=== PATIENT | female | born 1955 | race Caucasian/White ===

== ENCOUNTER 2019-12-02 11:27 | Outpatient (REF) | payer OTHER, SELFPAY ==
[2019-12-02 14:12] LABS: MANUAL DIFF FLAG NO
[2019-12-02 14:26] LABS: Basophils Absolute Auto 0.1 X10*3/uL (0.0-0.2); Basophils Percent Auto 1.1 % (0-2); Eosinophils Absolute Auto 0.2 X10*3/uL (0.0-0.4); Eosinophils Percent Auto 3.4 % (0-4); Hematocrit 45.6 % (37-47); Hemoglobin 14.8 g/dl (12.0-16.0); Imm Gran Abs Auto 0.01 X10*3/uL (0.00-0.03); Imm Gran Pct Auto 0.2 % (0.0-0.4); Lymphocytes Absolute Auto 2.6 X10*3/uL (1.2-4.9); Lymphocytes Percent Auto 47.1 % (20-40); Mean Corpuscular HGB Conc 32.5 g/dl (31.0-35.0); Mean Corpuscular Hemoglobin 31.4 pg (27.0-33.0); Mean Corpuscular Volume 96.6 fL (80-98); Mean Platelet Volume 10.4 fL (9.4-12.3); Monocytes Absolute Auto 0.4 X10*3/uL (0.1-1.2); Monocytes Percent Auto 7.2 % (2-11); Neutrophils Absolute Auto 2.3 X10*3/uL (2.0-8.3); Platelet Count 313 X10*3/uL (160-400); Red Blood Count 4.72 X10*6/uL (4.20-5.50); Red Cell Distribution Width 11.9 % (11.0-16.0); White Blood Count 5.6 X10*3/uL (4.8-10.8)
[2019-12-02 14:45] LABS: Alanine Aminotransferase 21 U/L (0-31); Albumin Level 4.3 g/dL (3.5-5.0); Alkaline Phosphatase 66 U/L (39-117); Anion Gap 12 (12-20); Aspartate Amino Transferase 20 U/L (5-31); Bilirubin Total 0.7 mg/dL (0.0-1.0); Blood Urea Nitrogen 14 mg/dL (9-16); Calcium 9.3 mg/dL (8.4-10.2); Carbon Dioxide 29 mmol/L (22-29); Chloride 103 mmol/L (96-108); Cholesterol 148 mg/dL; Estimated Glomerular Filt Rate > 60; Glucose Fasting 92 mg/dL (60-99); HDL Cholesterol 43 mg/dL; LDL Cholesterol Calculated 91 mg/dl; Potassium 4.5 mmol/l (3.3-5.1); Sodium 139 mmol/L (135-145); Total Protein 7.3 g/dL (6.5-8.0); Triglycerides 72 mg/dL
[2019-12-02 15:06] LABS: Thyroid Stimulating Hormone 0.63 mIU/mL (0.32-4.0)
== END 2019-12-02 11:28 | disposition home or self-care (01) ==
LOC: HO.HMGCLDS 11:27
PROVIDERS: PCP Internal Medicine; Visit Provider Internal Medicine
DX: Z00.00 Encounter for general adult medical examination without abnormal findings (principal); J45.20 Mild intermittent asthma, uncomplicated
CPT/HCPCS: 36415; 80053; 80061; 84443; 85025

== ENCOUNTER 2020-11-16 13:56 | Outpatient (REF) | payer OTHER, SELFPAY ==
--- NOTE | ~2020-11-16 | XR_ITS ---
EXAMINATION: XR CHEST CLINICAL INFORMATION: Mild intermittent asthma COMPARISON: None TECHNIQUE: 2 views of the chest were obtained. FINDINGS: There is region of parenchymal disease seen within the lingula consistent with pneumonia. No pneumothorax or pleural effusion. Heart normal size. No evidence of pulmonary edema. XR/XR chest 2V IMPRESSION: Lingular disease.
== END 2020-11-16 13:57 | disposition home or self-care (01) ==
LOC: HO.HMGCX 13:56
PROVIDERS: PCP Internal Medicine; Visit Provider Internal Medicine
DX: Z13.89 Encounter for screening for other disorder (principal)
CPT/HCPCS: 71046

== ENCOUNTER 2020-12-03 08:21 | Outpatient (REF) | payer OTHER, SELFPAY ==
--- NOTE | ~2020-12-03 | XR_ITS ---
EXAMINATION: XR CHEST CLINICAL INFORMATION: Left lower lobe pneumonia COMPARISON: Previous chest x-ray 11/16/2020 TECHNIQUE: 2 views of the chest were obtained. FINDINGS: The cardiac and mediastinal contours are stable. There is improving left base pneumonia. There are residual increased markings seen at the left lung base in the left lower lobe and lingula. The right lung is clear. There is no pleural effusion or pneumothorax. There are mild degenerative changes of the spine. XR/XR chest 2V IMPRESSION: Improving left base pneumonia.
[2020-12-03 11:52] LABS: MANUAL DIFF FLAG NO
[2020-12-03 12:14] LABS: Basophils Absolute Auto 0.1 X10*3/uL (0.0-0.2); Eosinophils Absolute Auto 0.5 X10*3/uL (0.0-0.4); Hematocrit 44.3 % (37-47); Hemoglobin 14.5 g/dl (12.0-16.0); Imm Gran Abs Auto 0.02 X10*3/uL (0.00-0.03); Imm Gran Pct Auto 0.3 % (0.0-0.4); Lymphocytes Absolute Auto 2.2 X10*3/uL (1.2-4.9); Lymphocytes Percent Auto 35.9 % (20-40); Mean Corpuscular HGB Conc 32.7 g/dl (31.0-35.0); Mean Corpuscular Hemoglobin 31.4 pg (27.0-33.0); Mean Corpuscular Volume 95.9 fL (80-98); Mean Platelet Volume 9.6 fL (9.4-12.3); Monocytes Absolute Auto 0.5 X10*3/uL (0.1-1.2); Monocytes Percent Auto 7.4 % (2-11); Neutrophils Absolute Auto 2.9 X10*3/uL (2.0-8.3); Neutrophils Percent Auto 47.4 % (45-73); Platelet Count 328 X10*3/uL (160-400); Red Blood Count 4.62 X10*6/uL (4.20-5.50); Red Cell Distribution Width 12.5 % (11.0-16.0); White Blood Count 6.1 X10*3/uL (4.8-10.8)
[2020-12-03 12:22] LABS: Alanine Aminotransferase 26 U/L (0-31); Albumin Level 4.1 g/dL (3.5-5.0); Alkaline Phosphatase 69 U/L (39-117); Anion Gap 10 (12-20); Aspartate Amino Transferase 23 U/L (5-31); Bilirubin Total 0.7 mg/dL (0.0-1.0); Blood Urea Nitrogen 13 mg/dL (9-16); C Reactive Protein 0.07 mg/dL (< or = 0.50); Calcium 8.9 mg/dL (8.4-10.2); Carbon Dioxide 25 mmol/L (22-29); Chloride 108 mmol/L (96-108); Estimated Glomerular Filt Rate > 60; Glucose Random 112 mg/dL (60-115); Potassium 4.3 mmol/L (3.3-5.1); Sodium 139 mmol/L (135-145)
== END 2020-12-03 08:22 | disposition home or self-care (01) ==
LOC: HO.HMGCX 08:21
PROVIDERS: PCP Internal Medicine; Visit Provider Internal Medicine
DX: J18.9 Pneumonia, unspecified organism (principal)
CPT/HCPCS: 36415; 71046; 80053; 85025; 86140

== ENCOUNTER 2021-01-26 11:43 | Outpatient (REF) | payer OTHER, SELFPAY ==
--- NOTE | ~2021-01-26 | XR_ITS ---
EXAMINATION: XR CHEST CLINICAL INFORMATION: Lingular infiltrate, follow-up. COMPARISON: Chest radiographs dated 12/03/2020 and 11/16/2020. TECHNIQUE: 2 views of the chest were obtained. FINDINGS: Mild opacification is again seen in the lingula with interval improvement. The lungs are otherwise clear. There are no pleural effusions. The heart and mediastinal structures are unremarkable. XR/XR chest 2V IMPRESSION: Lingular opacity appears decreased from the previous study. This could represent improving infiltrate/atelectasis and/or epicardial fat pad and pleural reflection. Repeat PA and lateral views of the chest could be performed in 3 months to assess for change.
== END 2021-01-26 11:44 | disposition home or self-care (01) ==
LOC: HO.HMGCX 11:43
PROVIDERS: PCP Internal Medicine; Visit Provider Internal Medicine
DX: J18.9 Pneumonia, unspecified organism (principal)
CPT/HCPCS: 71046

== ENCOUNTER → 2021-01-31 09:43 | Outpatient (BNVA) | payer OTHER, SELFPAY | PROVIDERS: PCP Internal Medicine; Visit Provider Internal Medicine | DX: J45.909 Unspecified asthma, uncomplicated (principal); J18.9 Pneumonia, unspecified organism | CPT/HCPCS: 99202 ==

== ENCOUNTER 2021-03-22 14:32 | Outpatient (REF) | payer OTHER, SELFPAY ==
--- NOTE | 2021-03-22 17:37 | PFT_ITS ---
Forced vital capacity 75%, FEV1 71%, FEV1/FVC ratio 72, FEF 25/75, is 52%, and MVV 66%. Post-bronchodilator therapy, there is a significant improvement in FVC, FEV1, and FEF 25/75. Total lung capacity 78% and residual volume 68%, consistent with mild restrictive pulmonary disorder. Diffusion capacity is normal. CONCLUSION: Mild restrictive disorder. Mild obstructive airway disorder with almost complete reversibility after bronchodilator therapy. These findings are suggestive of bronchial asthma. Clinical correlation recommended. MD UNIQUE Jacobs/JEANETTE / [id number]
== END 2021-03-22 14:33 | disposition home or self-care (01) ==
LOC: HO.RESP 14:32
PROVIDERS: PCP Internal Medicine; Visit Provider Internal Medicine
DX: J45.909 Unspecified asthma, uncomplicated (principal); R06.00 Dyspnea, unspecified
CPT/HCPCS: 94060; 94727; 94729

== ENCOUNTER → 2021-03-27 13:01 | Outpatient (BNVA) | payer OTHER, SELFPAY | PROVIDERS: PCP Internal Medicine; Visit Provider Internal Medicine | DX: J45.909 Unspecified asthma, uncomplicated (principal) | CPT/HCPCS: 99212 ==

== ENCOUNTER 2021-05-13 12:19 | Emergency (ER) | payer OTHER, SELFPAY ==
--- NOTE | 2021-05-13 | ECG_ITS ---
Test Reason : chest pain Blood Pressure : / mmHG Vent. Rate : 077 BPM Atrial Rate : 077 BPM P-R Int : 172 ms QRS Dur : 090 ms QT Int : 406 ms P-R-T Axes : 068 043 035 degrees QTc Int : 459 ms Normal sinus rhythm Possible Left atrial enlargement Borderline ECG No previous ECGs available Referred By: Generic ED Physician Electronically Signed By:Padilla Rasmussen
[2021-05-13 14:24] VITALS: BP 174/82; PULSE 80; RESP 18; TEMP 36.6; O2SAT 97; BMI 27.1
[2021-05-13 14:57] LABS: MANUAL DIFF FLAG NO
[2021-05-13 14:59] LABS: Basophils Absolute Auto 0.1 X10*3/uL (0.0-0.2); Basophils Percent Auto 0.6 % (0-2); Eosinophils Absolute Auto 0.1 X10*3/uL (0.0-0.4); Eosinophils Percent Auto 0.7 % (0-4); Hematocrit 45.2 % (37.0-47.0); Imm Gran Abs Auto 0.04 X10*3/uL (0.00-0.03); Imm Gran Pct Auto 0.4 % (0.0-0.4); Lymphocytes Absolute Auto 2.1 X10*3/uL (1.2-4.9); Lymphocytes Percent Auto 22.9 % (20-40); Mean Corpuscular HGB Conc 33.2 g/dl (31.0-35.0); Mean Corpuscular Hemoglobin 31.2 pg (27.0-33.0); Mean Platelet Volume 8.9 fL (9.4-12.3); Monocytes Absolute Auto 0.5 X10*3/uL (0.1-1.2); Monocytes Percent Auto 5.1 % (2-11); Neutrophils Absolute Auto 6.4 x10*3/uL (2.0-8.3); Neutrophils Percent Auto 70.3 % (45-73); Platelet Count 327 X10*3/uL (160-400); Red Blood Count 4.81 X10*6/uL (4.20-5.50); Red Cell Distribution Width 11.9 % (11.0-16.0); White Blood Count 9.1 X10*3/uL (4.8-10.8)
[2021-05-13 15:13] LABS: Anion Gap 14 (12-20); Blood Urea Nitrogen 15 mg/dL (9-16); Calcium 9.6 mg/dL (8.4-10.2); Carbon Dioxide 23 mmol/L (22-29); Chloride 105 mmol/L (96-108); Creatinine Clr Calc Pharmacy 81.2; Estimated Glomerular Filt Rate > 60; Glucose Random 108 mg/dL (60-115); Potassium 4.1 mmol/L (3.3-5.1); Sodium 138 mmol/L (135-145)
== END 2021-05-13 18:57 | disposition left against medical advice (07) ==
PROVIDERS: Emergency Provider Emergency Medicine; PCP Internal Medicine
DX: R00.2 Palpitations (principal); R03.0 Elevated blood-pressure reading, without diagnosis of hypertension
CPT/HCPCS: 36415; 80048; 85025; 93005; 99283

== ENCOUNTER → 2021-06-20 13:55 | Outpatient (BNVA) | payer MEDICARE, OTHER, SELFPAY | PROVIDERS: PCP Internal Medicine; Visit Provider Internal Medicine | DX: J45.991 Cough variant asthma (principal) | CPT/HCPCS: 99212 ==

== ENCOUNTER 2021-12-27 15:38 | Outpatient (REF) | payer MEDICARE, MEDICAID, SELFPAY ==
--- NOTE | ~2021-12-27 | XR_ITS ---
EXAMINATION: XR KNEE, LEFT CLINICAL INFORMATION: Pain COMPARISON: None TECHNIQUE: Four views of the left knee. FINDINGS: Bone alignment is normal. No fracture or dislocation. Arthritis at the medial femoral tibial joint with joint space narrowing and osteophyte formation. Joint spaces are otherwise normal. No joint effusion. 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
== END 2021-12-27 15:39 | disposition home or self-care (01) ==
LOC: HO.HMGCX 15:38
PROVIDERS: PCP Internal Medicine; Visit Provider Internal Medicine
DX: M25.562 Pain in left knee (principal)
CPT/HCPCS: 73564

== ENCOUNTER 2024-05-03 11:28 | Outpatient (AMB) | payer MEDICARE, MEDICAID, SELFPAY ==
--- NOTE | 2024-05-03 11:41 | A.OFFPC_ITS ---
Vital Signs 05/03/24 11:42 Height 5 ft 6 in Weight 177 lb BMI 28.6 BP 160/88 H Respiration 16 Pulse 66 Pulse Source Pulse Oximeter Temp 97.7 F Pulse Oximetry (%) 96 Oxygen Delivery Method Room Air Intake Visit Reasons: blocked ears [employer] Required: No Accompanied by: Self / Same As Patient Allergies codeine Allergy (Severe, Verified 05/03/24 13:15) chest pain Penicillins Allergy (Severe, Verified 05/03/24 13:15) hives Medication List - Last Reconciled 05/03/24 by Funmilayo Eagle PA-C albuterol sulfate 90 mcg/actuation 1 inh inhalation QID PRN fluticasone propionate 220 mcg/actuation 2 puffs PO BID levalbuterol tartrate 45 mcg/actuation 2 puffs inhalation Q4-6H PRN 30 days loratadine-pseudoephedrine 5-120 mg ER (Claritin-D 12 Hour) 1 tab PO Q12H losartan 50 mg PO BID propranolol 10 mg PO BID PRN valacyclovir (Valtrex) 1,000 mg PO TID 14 days Tobacco use date assessed: 05/03/24 Fall risk assessment: No Falls in past year Last assessed Fall Risk: 05/03/24 Dental Screening Dental Screen Date: 05/03/24 Did you have a dental visit in the last 12 months?: Yes Did you have a dental problem in the last 6 months where you did not have access to dental care?: No PFSH Medical History (Updated 05/03/24 @ 13:35 by Funmilayo Eagle PA-C) Overweight with body mass index (BMI) of 28 to 28.9 in adult Breast cancer screening Encounter for colorectal cancer screening using Cologuard test (~08/05/22) Varicella zoster Headache, migraine Other disturbances of skin sensation Hypertension Otalgia, bilateral Asthma Pneumonia Asthmatic bronchitis Surgical History (Updated 05/03/24 @ 13:27 by Funmilayo Eagle PA-C) History of dilatation and curettage History of cholecystectomy Family History Father Heart disease Mother Bladder cancer Social History Housing: House Alcohol intake: never Patient Tobacco Use Status: Former Tobacco user service: No Current occupational status: employed Cognitive needs: No Hearing needs: No Vision needs: Yes Questionnaire PHQ-9 Over the last 2 weeks, how often have you been bothered by any of the following problems? 1. Little interest or pleasure in doing things: not at all 2. Feeling down, depressed, or hopeless: not at all 3. Trouble falling or staying asleep, or sleeping too much: not at all 4. Feeling tired or having little energy: not at all 5. Poor appetite or overeating: not at all 6. Feeling bad about yourself - or that you are a failure or have let yourself or your family down: not at all 7. Trouble concentrating on things, such as reading the newspaper or watching television: not at all 8. Moving or speaking so slowly that other people could have noticed. Or the opposite - being so fidgety or restless that you have been moving around a lot more than usual: not at all 9. Thoughts that you would be better off or of hurting yourself in some way: not at all Total score: 0 Depression Screening Interpretation: Negative Depression Screening Done: Yes 80127 - PHQ-9 Billing: Yes Source: Developed by Drs. Santo Woods, Neha Prasad, Contreras Vail and colleagues, with an educational marco a from [employer]. Thrive Questionnaire Date Thrive assessed: 05/03/24 I am a: Patient What is your living situation today?: I have a steady place to live Within the past 12 months, did the food you bought not last and you didn't have the money to get more?: Never true Within the past 12 months, did you worry whether your food would run out before you got money to buy more?: Never true Do you have trouble paying for medicines?: No Do you have trouble getting transportation to medical appointments?: No Do you have trouble paying your heating and electricity bill?: No Do you have trouble taking care of your child, family member or friend?: No Do you have trouble with day-to-day activities such as bathing, preparing meals, shopping, managing finances, etc.?: No Are you currently unemployed and looking for a job?: No Are you interested in more education?: No THRIVE Score: 0 AUDIT C Alcohol Use Questionnaire (AUDIT-C) 1. How often do you have a drink containing alcohol?: Never 3. How often do you have six or more drinks on one occasion?: Never Total Score: 0 Score Reviewed/Action Taken: No CHOCO-7 AMB Questionnaire CHOCO-7 Date CHOCO - 7 assessed: 05/03/24 Feeling nervous, anxious, or on edge: 0 = Not at all Not being able to stop or control worryin = Not at all Worrying too much about different things: 0 = Not at all Trouble relaxin = Not at all Being so restless that it is hard to sit still: 0 = Not at all Becoming easily annoyed or irritable: 0 = Not at all Feeling afraid as if something awful might happen: 0 = Not at all Total CHOCO-7 score (0-4 normal; 5-9 mild; 10-14 moderate; 15-21 severe): 0 Source: Developed by Drs. Santo Woods, Neha Prasad, Contreras Vail and colleagues, with an educational marco a from [employer]. CHOCO-7 Assessment Billing CHOCO-7 Assessment Tool: CHOCO-7 Assessment 40613 Physical exam (Primary Care) Vital Signs: Last Vital Signs Temp 97.7 F 05/03/24 11:42 Pulse 66 05/03/24 11:42 Resp 16 05/03/24 11:42 BP 160/88 H 05/03/24 11:42 Pulse Ox 96 05/03/24 11:42 Oxygen Delivery Method Room Air 05/03/24 11:42 Care Plan Goal for BP management: <130/80 will increase losartan to 50 mg b.i.d.. BMI result Body Mass Index 28.6 BMI Assessment/Plan discussion: High BMI High, discussed plan: lifestyle, weight reduction, dietary, physical activity and alcohol moderation Tobacco/Smoking Status: Tobacco use Status Tobacco use date assessed 05/03/24 05/03/24 11:51 Patient Tobacco Use Status Former Tobacco user 05/03/24 11:51 PHQ-9: PHQ-9 Score PHQ-9: Total score 0 05/03/24 11:51 Depression Screening Interpretation: Negative Thrive Assessment: Date of Thrive Assessment Date Thrive assessed 05/03/24 05/03/24 11:51 Coding Level of Care Code New Pt Level 4 (29293) Complex EM visit Add On G2211 Diagnoses Otalgia, bilateral H92.03 Hypertension I10 Other disturbances of skin sensation R20.8 Breast cancer screening Z12.39 Asthma J45.909 Headache, migraine G43.909 Overweight with body mass index (BMI) of 28 to 28.9 in adult E66.3; Z68.28 Additional Codes PHQ-9 - 84519 - PHQ-9 Billing: Yes ([id number]) CHOCO-7 Assessment Billing - CHOCO-7 Assessment Tool: CHOCO-7 Assessment 66260 ([id number]) Assessment & Plan Assessment & Plan (1) Otalgia, bilateral: Code(s): H92.03 - Otalgia, bilateral Category: Medical Plan: Bilateral ear pain no evidence of otitis media, otitis externa, cerumen impaction, mastoiditis or any foreign bodies or abnormalities. Patient with some fluid behind the tympanic membrane. Will prescribe Claritin D. Condition is stable will continue to monitor. (2) Hypertension: Code(s): I10 - Essential (primary) hypertension Category: Medical Plan: BP goal <130/80. BP at 160/88 will increase losartan 50 mg B.I.D.. Patient to monitor her blood pressure and return in 1 month for blood pressure check. Condition is chronic and stable continue to monitor. (3) Other disturbances of skin sensation: Code(s): R20.8 - Other disturbances of skin sensation Category: Medical Plan: Patient with burning sensation to bilateral breasts. She has a few red spots to the right breast there are no lumps or lesions or signs of infection. She has a history of shingles to her back. This could be a possible starting of a shingles therefore will send Valtrex. Condition is stable continue to monitor. (4) Breast cancer screening: Code(s): Z12.39 - Encounter for other screening for malignant neoplasm of breast Category: Medical Plan: Will refer patient for mammogram for breast cancer screening. (5) Asthma: Comment: Patient has long-standing history of low-grade hypersensitivity disorder of the airways. Now as per pulmonary function test, there is evidence of bronchial asthma, which may be mild to moderate, and intermittent. In her case asthma presents mostly in the form of cough variant. [place] : At this time, because she is asymptomatic and lungs are clear, she can wean her off Flovent . No need to use any oral steroids. For rescue inhaler, I will order levalbuterol, which should not cause any tachycardia. Revisit Q 6 months and as needed Code(s): J45.909 - Unspecified asthma, uncomplicated Category: Medical Plan: Condition is chronic and stable continue to monitor. (6) Headache, migraine: Code(s): G43.909 - Migraine, unspecified, not intractable, without status migrainosus Category: Medical Plan: Condition is chronic and stable continue to monitor. (7) Overweight with body mass index (BMI) of 28 to 28.9 in adult: Code(s): E66.3 - Overweight; Z68.28 - Body mass index [BMI] 28.0-28.9, adult Category: Medical Plan: PATIENT TO IMPROVE HER DIET AND EXERCISE REGIMEN. CONDITION IS CHRONIC AND STABLE CONTINUE TO MONITOR. Plan Plan Patient was informed and verbally consented to the use of an ambient scribe for clinic note documentation during this visit. 1. Hypertension Adjust Losartan to 50 mg bid, with BP re-evaluation plan. 2. Suspected Shingles Prescribe Valtrex; detailed instructions on symptom monitoring. 3. Breast Pain Mammogram referral to investigate; consider differentials including blocked duct or shingles if symptoms evolve. 4. Tinnitus Await ENT feedback; self-monitor for changes. 5. Ear Congestion Prescribe Claritin D; refer to ENT for further assessment. Discussion Notes I discussed the patient's symptoms and potential causes, focusing on possibilities such as blocked ducts, shingles, or pressure from hypertension. We agreed on mammography for pain evaluation and initiated an ENT referral due to persistent ear issues alongside a trial of Claritin D. Furthermore, I advised adjusting her hypertension regime by increasing Losartan and provided instructions regarding her blood pressure monitoring. We discussed shingles risk, prescribing Valtrex preemptively, emphasizing early antiviral intervention at symptom onset. The patient expressed understanding and agreed with the propo sed next steps. Orders: Orders C Reactive Protein Today Z00.00 - Encounter for general adult medical examination without abnormal findings Complete Blood Count Auto Diff Today Z00.00 - Encounter for general adult medical examination without abnormal findings Hemoglobin A1c Today Z00.00 - Encounter for general adult medical examination without abnormal findings Vitamin B1 Today Z00.00 - Encounter for general adult medical examination without abnormal findings TSH reflex Free T4 Today Z00.00 - Encounter for general adult medical examination without abnormal findings MM screening mammo BI Today Z12.31 - Encounter for screening mammogram for malignant neoplasm of breast Comprehensive Soper. Panel Fast Today Z00.00 - Encounter for general adult medical examination without abnormal findings Lipid Panel Today Z00.00 - Encounter for general adult medical examination without abnormal findings Liver Panel Today Z00.00 - Encounter for general adult medical examination without abnormal findings Magnesium Today Z00.00 - Encounter for general adult medical examination without abnormal findings Vitamin B12 and Folate Today Z00.00 - Encounter for general adult medical examination without abnormal findings Vitamin D 25-OH Total Today Z00.00 - Encounter for general adult medical examination without abnormal findings LDL Cholesterol Direct Today Z00.00 - Encounter for general adult medical examination without abnormal findings Medications: New losartan 50 mg PO BID 180 tabs 1RF loratadine-pseudoephedrine 5-120 mg ER (Claritin-D 12 Hour) 1 tab PO Q12H 30 tabs 0RF valacyclovir (Valtrex) 1,000 mg PO TID 42 tabs 0RF herpes zoster 14 days Patient Instructions: Patient Instructions - Use Claritin D as prescribed for ear symptoms. - Monitor and record blood pressure readings daily. - Take Losartan 50 mg twice daily. - Watch breasts for any new rashes and notify immediately upon noticing any shingles-related symptoms. - Fill and keep Valtrex on hand for emergency use against shingles. - Schedule mammogram appointment promptly. - Follow up as recommended for both blood pressure management and review of mammography results. - Continue weight management routine and bone broth fasting. Scribe Plan - Not visible on output: History of Present Illness The patient is a 68-year-old female presenting with ear congestion and burning breast pain. The ear symptoms mimic pressure changes, potentially tied to her blood pressure, though allergies were considered. The breast issue began acutely, raising the specter of a past blocked duct. The possibility of shingles is under consideration, given her history. She has deferred mammograms against medical advice, complicating a thorough breast assessment. Blood pressure concerns persist, with marginal relief from medication adjustments. Social History - , resides at home. - Reports managing hypertension. 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 - Observes dietary changes: off sugar since February, incorporating bone broth, fasting twice weekly for weight loss. - Practices home-based exercise through activity modifications. - Son is a chiropractor, patient receiving chiropractic adjustments. - Avoids underwire bras due to personal belief related to breast health. Review of Systems - Ears: Reports slight ringing. - Cardiovascular: Denies chest pain. - Respiratory: Denies coughing. - Gastrointestinal: Denies unusual bowel habits. - Genitourinary: Denies abnormalities. - Musculoskeletal: Denies any other joint pain. - Neurological: Reports chronic tinnitus. - Immunologic: History of recurrent shingles episodes. Physical Exam Appearance: Alert. Oriented X3. No acute distress. Head: Normal external exam. Normocephalic. Atraumatic. Eyes: Pupils are equal, round, and reactive to light. Extraocular movements intact. Conjunctiva and sclera normal. Eyelids normal. Ears: External auditory canal shows a little bit of fluid, but no infection. Throat: Pharynx normal. Uvula midline. Moist mucous membranes. Neck: Normal inspection. Neck supple. Full range of motion. No adenopathy. Thyroid Normal. No meningeal signs. No neck mass noted. Cardiovascular: Normal heart rate and rhythm. Heart sound normal. No murmurs noted. Pulses normal throughout. Respiratory: No respiratory distress. Painless inspiration. Breath sounds no rmal. No wheezes/rales/rhonchi noted. Chest nontender. No accessory muscle usage noted or decreased air movement noted. Abdomen: Soft and nontender. Bowel sounds normal in all 4 quadrants. No distenti on noted. No organomegaly noted. No visible injury noted. Back: No costovertebral angle tenderness. Full range of motion noted. Skin: Skin warm and dry. Normal skin color. Normal skin turgor. Little red spots noted, possibly indicative of shingles. Extremities: No lower extremity edema. Extremities exhibit normal range of motion. Extremities nontender. Neuro: Oriented X 3. No motor deficit. No sensory deficit. Reflexes normal. Results - Tests and Diagnostics: Mammogram referral pending.
[2024-05-03 11:42] VITALS: BP 160/88; PULSE 66; RESP 16; TEMP 36.5; O2SAT 96; BMI 28.6
--- OUTSIDE RECORDS SUMMARY | 2024-05-03 14:13 | XMS_ITS | Patient Health Record ---
Author Organization Daniel Kerr MD Address [address] [place], [place] [id number] Care Team Providers Care Supervisor [employer] Name Role Phone Santo Arthur DO Primary Care Provider Unavail able Allergies Allergen (clinical drug ingredient) Drug/Non Drug Allergy documented on EMR Reaction Allergy Type Onset Date Status Penicillin hives Drug Allergy Active valacyclovir Valacyclovir dizziness Drug Allergy A ctive codeine Codeine chest pain Drug Allergy Active 12 Hour Nasal [place] Unknown Drug Allergy Active Reason For Referral No Information Medications Medication SIG (Take, Route, Frequency, Duration) Notes Start Date End Date Status Propranolol HCl 10 MG 1 tablet Orally On ce a day for 30 day(s) Active valACYclovir HCl 1 GM 1 tablet Orally 3 times a day for 7 days 01/23/2023 Active Losartan Potassium 50 MG 1 tablet Orally Once a day for 30 day(s) Active Ocuflox 0.3 % as directed Ophthalm ic 2 drops 4 times a day for 7 days 03/16/2023 Active Plan Of Treatment No Information Insurance Providers Payer Name Payer Address Payer Phone Subscriber Number Group Number Insured Name Patient Relationship to Insured Coverage Start Date Coverage End Date [employer] [address] [place] [address] [id number] Dahiana Albarado Self - patient is the insured [facility] [address] [place] [address] [id number] Dahiana Albarado Self - patient is the insured
--- OUTSIDE RECORDS SUMMARY | 2024-05-03 14:13 | XMS_ITS ---
Author Organization Daniel Kerr MD Address [address] [place] [id number] Care Team Providers Care Technical Marketing Engineer Name Role Phone Jerson Santo Primary Care Provider Unavail Daniel Bird Unavailable [phone] REASON FOR VISIT stye right eye, ? pink eye Medications Medication SIG (Take, Route, Frequency, Duration) Notes Start Date End Date Status Ocuflox 0.3 % as directed Ophthalm ic 2 drops 4 times a day for 7 days 03/16/2023 Active Encounters Encounter Location Date Provider Diagnosis Daniel Kerr MD [address] [place] [phone] 03/16/2023 Daniel Kerr Plan Of Treatment Medication Medication Name Sig Start Date Stop Date Notes Ocuflox 0.3 % as directed Ophthalm ic 2 drops 4 times a day for 7 days 03/16/2023 Progress Notes * Dahiana ALBARADODOB: [birth year] (67 yo F)Acc No.[id number]:03/16/2023 Patient:?Dahiana Albarado :1955???Age:67 Y???Sex:Female [address] , [place], [address] * Refills? Start Ocuflox Solution, 0.3 %, Ophthalmic, 1, as directed, 2 drops 4 times a day, 7 days * true * Date:? Generated for Lakhwinder camilo/Javon/eTransmitting on:?05/03/2024 02:13 PM EDT
--- OUTSIDE RECORDS SUMMARY | 2024-05-03 14:13 | XMS_ITS | Clinical Summary ---
Author Organization [facility] Address [address] [place] [address] Care Team Providers Care Regional Account Executive Name Role Phone Unavailable Primary Care Provider Unavailabl e Social History Tobacco Use Types Packs/Day Years Used Date Smoking Tobacco: Never Assessed Comments Unknown Sex and Gender Information Value Date Recorded Sex Assigned at Not on file Legal Sex Female 8:27 AM PST Gender Identity Not on file Sexual Orientation Not on file Plan of Treatment Not on file
--- OUTSIDE RECORDS SUMMARY | 2024-05-03 14:13 | XMS_ITS | Encounter Summary ---
Author Organization [facility] [place] Address [address] [place] [address] Care Team Providers Care Time Clock Mechanic Name Role Phone Unavailable Primary Care Provider Unavailabl e Prior Encounters Date Type Department Care Team Description 03/14/2019 Converted CPS Chart Documents [facility] [address] [place] [phone] <No scans attached> 03/14/2019 Converted CPS Chart Documents [facility] [address], [facility] [address] [place] [phone] <No scans attached> 03/14/2019 Converted 13x Documents [facility] [address] [place] [phone] <No scans attached> 03/14/2019 Converted 13x Documents [facility] [address], [facility] [address] [place] [phone] <No scans attached> Plan of Treatment Not on file Procedures Procedure Name Priority Date/Time Associated Diagnosis Comments ADJUST PARTIAL DENTURE - MAXILLARY Routine 05/27/2016 1:00 AM MDT CANCELLED APPOINTMENT Routine 04/28/2016 1:00 AM MST 20 CERECFIRED CROWNPOST Routine 03/14/19 17 1:00 AM MST COMPREHENSIVE PERIODONTAL EVALUATION - NEW OR ESTABLISHED PATIENT Routine 02/06/2016 1:00 AM MST LR PERIODONTAL SCALING AND ROOT PLANING - FOUR OR MORE TEETH PER QUADRANT Routine 01/30/2016 1:00 AM MST LL PERIODONTAL SCALING AND ROOT PLANING - FOUR OR MORE TEETH PER QUADRANT Routine 01/30/2016 1:00 AM MST ORAL HYGIENE INSTRUCTIONS Routine 2015 1:00 AM MST LR JIMENA DECON/QD Routine 01/30/2016 1:00 AM MST LL JIMENA DECON/QD Routine 01/30/2016 1:00 AM MST UL JIMENA DECON/QD Routine 01/30/2016 1:00 AM MST UR JIMENA DECON/QD Routine 01/30/2016 1:00 AM MST UR PERIODONTAL SCALING AND ROOT PLANING - ONE TO THREE TEETH PER QUADRANT Routine 01/30/2016 1:00 AM MST UL PERIODONTAL SCALING AND ROOT PLANING - ONE TO THREE TEETH PER QUADRANT Routine 01/30/2016 1:00 AM MST UR ANTIBACT IRR/QUAD Routine 01/30/2016 1:00 AM MST UL ANTIBACT IRR/QUAD Routine 01/30/2016 1:00 AM MST LR ANTIBACT IRR/QUAD Routine 01/30/2016 1:00 AM MST LL ANTIBACT IRR/QUAD Routine 01/30/2016 1:00 AM MST DENTAL PLAN ENROLL 2 Routine 01/30/2016 1:00 AM MST 19 CROWN - FULL CAST HIGH MARIE METAL Routine 01/22/2016 1:00 AM MST 20 AMALGAM 3 SURFACE Routine 016 1:00 AM MST 31 RETAINER CROWN - ZIRCONIA IN OFFICE - POST Routine 01/22/2016 1:00 AM MST 29 RETAINER CROWN - ZIRCONIA IN OFFICE - POST Routine 01/22/2016 1:00 AM MST 30 PONTIC - ZIRCONIA IN OFFICE - POST Routine 01/22/2016 1:00 AM MST 19 ENDODONTIC THERAPY, MOLAR TOOTH (EXCLUDING FINAL GNOSTICIST) Routine 01/22/2016 1:00 AM MST 29 ENDODONTIC THERAPY, PREMOLAR TOOTH (EXCLUDING FINAL GNOSTICIST) Routine 01/22/2016 1:00 AM MST 10 ENDODONTIC THERAPY, ANTERIOR TOOTH (EXCLUDING FINAL GNOSTICIST) Routine 01/22/2016 1:00 AM MST 6 ENDODONTIC THERAPY, ANTERIOR TOOTH (EXCLUDING FINAL GNOSTICIST) Routine 01/22/2016 1:00 AM MST 11 CROWN PFM ANT Routine 01/22/2016 1:00 AM MST 10 CROWN PFM ANT Routine 01/22/2016 1:00 AM MST 9 CROWN PFM ANT Routine 01/22/2016 1:00 AM MST 8 CROWN PFM ANT Routine 01/22/2016 1:00 AM [facility] ADJUNCTIVE PRE-DIAGNOSTIC TEST THAT AIDS IN DETECTION OF MUCOSAL ABNORMALITIES Routine 01/22/2016 1:00 AM MST COMPREHENSIVE ORAL EVALUATION - NEW OR ESTABLISHED PATIENT Routine 01/22/2016 1:00 AM [facility] PANORAMIC RADIOGRAPHIC IMAGE Routine 01/22/2016 1:00 AM [facility] INTRAORAL - COMPREHENSIVE SERIES OF RADIOGRAPHIC IMAGES Routine 01/22/2016 1:00 AM MST INTRAORAL PHOTO Routine 01/22/2016 1:00 AM MST INTRAORAL PHOTO Routine 01/22/2016 1:00 AM MST INTRAORAL PHOTO Routine 01/22/2016 1:00 AM MST INTRAORAL PHOTO Routine 01/22/2016 1:00 AM MST INTRAORAL PHOTO Routine 01/22/2016 1:00 AM MST INTRAORAL PHOTO Routine 01/22/2016 1:00 AM MST INTRAORAL PHOTO Routine 01/22/2016 1:00 AM MST INTRAORAL PHOTO Routine 01/22/2016 1:00 AM MST 6 UNSPECIFIED FIXED PROSTHODONTIC PROCEDURE, BY REPORT Routine 01/17/2014 1:00 AM MST 6 LIMITED ORAL EVALUATION - PROBLEM FOCUSED Routine 01/17/2014 1:00 AM MST 6 ENDODONTIC THERAPY, ANTERIOR TOOTH (EXCLUDING FINAL GNOSTICIST) Routine 01/13/2014 1:00 AM MST CHLORHEXIDINE Routine 01/13/2014 1:00 AM MST 6 LIMITED ORAL EVALUATION - PROBLEM FOCUSED Routine 01/13/2014 1:00 AM MST SINGLE X-RAY Routine 01/13/2014 1:00 AM MST INTRAORAL PHOTO Routine 01/13/2014 1:00 AM MST 6 CORE BUILDUP, INCLUDING ANY PINS WHEN REQUIRED Routine 03/21/2013 1:00 AM MST 30 PONTIC - PFG - POST Routine 3 1:00 AM MDT 31 RETAINER CROWN - PFG - POST Routine 09/22/2012 1:00 AM MDT 29 RETAINER CROWN - PFG - POST Routine 09/22/2012 1:00 AM MDT 7 RETAINER CROWN - PFG - POST Routine 09/22/2012 1:00 AM MDT 6 RETAINER CROWN - PFG - POST Routine 09/22/2012 1:00 AM MDT 29 ENDODONTIC THERAPY, PREMOLAR TOOTH (EXCLUDING FINAL GNOSTICIST) Routine 09/22/2012 1:00 AM MDT ADDITIONAL X-RAY Routine 09/22/2012 1:00 AM MDT 6 LIMITED ORAL EVALUATION - PROBLEM FOCUSED Routine 09/22/2012 1:00 AM MDT SINGLE X-RAY Routine 09/22/2012 1:00 AM MDT Visit Diagnoses Not on file
--- OUTSIDE RECORDS SUMMARY | 2024-05-03 14:14 | XMS_ITS | Patient Health Record ---
Author Organization [facility] Address [address] [place] [address] Care Team Providers Care Research Manager Name Role Phone Santo Arthur MD Primary Care Provider Unavail able Micheal Becerril Unavailable [phone] Allergies Allergen (clinical drug ingredient) Drug/Non Drug Allergy documented on EMR Reaction Allergy Type Onset Date Status Aleve ill feeling Drug Allergy Activ e Biaxin hives Drug Allergy Active azithromycin Azithromycin hives Drug Allergy A ctive diclofenac Diclofenac diarrhea,upset stomach Drug Allergy Active erythromycin Erythromycin hives Drug Allergy A ctive Non-steroidal anti-inflammatory agent (FN) NSAIDs Unknown Drug Allergy Active Penicillin hives Drug Allergy Active Reason For Referral No Information Medications Medication SIG (Take, Route, Frequency, Duration) Notes Start Date End Date Status Losartan Potassium 50 MG Oral for 90 Active Propranolol HCl 10 MG TAKE 1 TABLET BY M OUTH TWICE A DAY FOR 90 DAYS Oral for 90 Active Immunizations Vaccine Route Administration Date Status Comme nts COVID-19 Pfizer BioNTech Vaccine Unknown 12/28/2020 Administered 03/16/20,04/06/20 Social History Tobacco Use: Social History Observation Description Date Details (start date - stop date) Former Smoker NA - NA Tobacco Use/Smoking Question Answer Notes Are you a: former smoker Additional Findings: Tobacco Non-User Current no n-smoker Alcohol Screen Question Answer Notes Did you have a drink containing alcohol in the p ast year? No Points 0 Interpretation Negative Tobacco use other than smoking: Question Answer Notes Are you an other tobacco user? 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 Plan Of Treatment Pending Test Test Name Order Date X ray : Foot, right 3V 05/06/2022 Insurance Providers Payer Name Payer Address Payer Phone Subscriber Number Group Number Insured Name Patient Relationship to Insured Coverage Start Date Coverage End Date Medicare National Govt Sv[employer] [address] [place] [address] [id number] Dahiana Albarado Self - patient is the insured Medical (General) History Medical History History ICD Code covid-19 Arthritis asthma Gall bladder problems High blood pressure Bone implants/screws eyes several retinal tears Surgical History Surgery Date(Month/Year) gall bladder removal 07/1982
--- OUTSIDE RECORDS SUMMARY | 2024-05-03 14:14 | XMS_ITS ---
Author Organization Daniel Kerr MD Address [address] [place] [phone] Care Team Providers Care Contract Mail Carrier Name Role Phone Jerson Santo SKELTON Primary Care Provider Unavail able Daniel Kerr Unavailable [phone] Allergies Allergen (clinical drug ingredient) Drug/Non Drug Allergy documented on EMR Reaction Allergy Type Onset Date Status Penicillin hives Drug Allergy Active valacyclovir Valacyclovir dizziness Drug Allergy A ctive codeine Codeine chest pain Drug Allergy Active 12 Hour Nasal [place] Unknown Drug Allergy Active REASON FOR VISIT ? shingles T7 T8 pain no rash x 3 days, No Covid symptoms, Video Medications Medication SIG (Take, Route, Frequency, Duration) Notes Start Date End Date Status Propranolol HCl 10 MG 1 tablet Orally On ce a day for 30 day(s) Active valACYclovir HCl 1 GM 1 tablet Orally 3 times a day for 7 days 01/23/2023 Active Losartan Potassium 50 MG 1 tablet Orally Once a day for 30 day(s) Active Encounters Encounter Location Date Provider Diagnosis Daniel Kerr MD [address] [place] [phone] 01/23/2023 Daniel Kerr Herpes zoster withou t complication B02.9 Assessments Encounter Date Diagnosis (ICD Code) Assessment Notes Treatment Notes Treatment Clinical Notes Section Notes 01/23/2023 Herpes zoster without complication (ICD-10 - B02.9) did not have an acual allergic reaction. just groggy head Patient/Caregiver verbalizes understanding of medications side effects, interactions and warnings. Plan Of Treatment Medication Medication Name Sig Start Date Stop Date Notes valACYclovir HCl 1 GM 1 tablet Orally 3 times a day for 7 days 01/23/2023 Treatment Notes Assessment Notes Herpes zoster without complication did n ot have an acual allergic reaction. just groggy head Patient/Caregiver verbalizes understanding of medications side effects, interactions and warnings. Progress Notes * Dahiana ALBARADODOB: [birth year] (67 yo F)Acc No.[id number]:01/23/2023 Patient:?Dahiana Albarado Provider:?Daniel Kerr MD :[id number]???Age:67 Y???Sex:Female D ate:01/23/2023 Address:[address] [place], [place] [phone] Pcp:Santo Arthur, DO Subjective: * Chief Complaints: * ? shingles T7 T8 pain no rash x 3 daysNo Covid symptomsVideo * HPI: ???Symptom(s):?Telehealth?Location of provider rendering services:?[address], [address],?Location of patient:?at address listed in demographics for today's visit,?Patient identification confirmed using:?Name, , SSN, Insurance information,?Telehealth method:?Video conference where patient is visible to the provider of care,?Consent:?Patient verbally consented to treatment, Patient verbally consented to billing insurance company, Patient informed of any privacy concerns related to method of visit.? patientis a 67 yo female video telehealth visit, patient of Dr Arthur, had shingles in past. had 10 years ago. this time has a lot of pain in ribs. started about 4 days ago. skin in the area is very sensitive to touch. below breast had tingling and is sensitive. * ROS:?General/Constitutional:?Denies?Chills.?Denies?Fatigue.?Denies?Fever.?Denies?Headache.?ENT:?Patient denies?decreased sense of smell , any loss of taste , sore throat.?Denies?Sore throat.?Respiratory:?Denies?Cough.?Denies?Shortness of breath at rest.?Denies?Shortness of breath with exertion.?Gastrointestinal:?Denies?Diarrhea.?Denies?Nausea.?Musculoskeletal:?Patient denies?muscle aches.?Peripheral Vascular:?Patient denies?red and blue toes.? * Medical History:? * Surgical History:? * Hospitalization/Major Diagno stic Procedure:? * Medications:?TakingLosartan Potassium 50 MG Tablet 1 tablet Orally Once a dayPropranolol HCl 10 MG Tablet 1 tablet Orally Once a dayMedication List reviewed and reconciled with the patientTaking Losartan Potassium 50 MG Tablet 1 tablet Orally Once a dayTaking Propranolol HCl 10 MG Tablet 1 tablet Orally Once a dayMedication List reviewed and reconciled with the patient * Allergies:?Penicillin: hives Codeine: chest pain12 Hour Nasal SprayValacyclovir: dizzinessyes[Allergies Verified] Objective: * Vitals:?weight at home 175 B P 120/80. * Examination: ???General Examination: ?GENERAL APPEARANCE:? alert, well hydrated, in no distress .? Assessment: * Assessment: 1.?Herpes zoster without com plication - B02.9 (Primary)? Plan: * Treatment: * Procedure Codes:? * * Sign off status: Completed true * Provider:?Daniel Kerr MD Date:?1 03/26/2022 Generated for Lakhwinder camilo/Javon/Luiitting on:?05/03/2024 02:14 PM EDT History and Physical Notes * HPI (History of Present Illness) Category Sub-Category Detail Notes Category Not es Symptom(s) Telehealth Location of prov ider rendering services:: [address], [address] patientis a 67 yo female video telehealth visit, patient of Dr Arthur, had shingles in past. had 10 years ago. this time has a lot of pain in ribs. started about 4 days ago. skin in the area is very sensitive to touch. below breast had tingling and is sensitive Location of patient:: at address listed in demographics for today's visit Patient identification confirmed using:: Name, , SSN, Insurance information Telehealth method:: Video co nference where patient is visible to the provider of care Consent:: Patient verbally c onsented to treatment, Patient verbally consented to billing insurance company, Patient informed of any privacy concerns related to method of visit Examination Category Sub-Category Detail Notes Category Not es General Examination GENERAL APPEARANCE: alert, w ell hydrated, in no distress
== END 2024-05-03 12:08 | disposition home or self-care (01) ==
LOC: HO.HMCSH 11:28
PROVIDERS: PCP Internal Medicine; Visit Provider Physician Assistant Medical
DX: H92.03 Otalgia, bilateral (principal); I10 Essential (primary) hypertension; R20.8 Other disturbances of skin sensation; Z12.39 Encounter for other screening for malignant neoplasm of breast; J45.909 Unspecified asthma, uncomplicated; G43.909 Migraine, unspecified, not intractable, without status migrainosus; E66.3 Overweight; Z68.28 Body mass index [BMI] 28.0-28.9, adult

== ENCOUNTER → 2024-05-03 11:28 | Outpatient (BNVA) | payer MEDICARE, MEDICAID, SELFPAY | PROVIDERS: PCP Internal Medicine; Visit Provider Physician Assistant Medical | DX: H92.03 Otalgia, bilateral (principal); I10 Essential (primary) hypertension; R20.8 Other disturbances of skin sensation; J45.909 Unspecified asthma, uncomplicated; G43.909 Migraine, unspecified, not intractable, without status migrainosus; E66.3 Overweight; Z68.28 Body mass index [BMI] 28.0-28.9, adult; Z71.3 Dietary counseling and surveillance | CPT/HCPCS: 96127; 99202 ==

== ENCOUNTER 2024-05-10 07:37 | Outpatient (REF) | payer MEDICARE, MEDICAID, SELFPAY ==
[2024-05-10 10:15] LABS: MANUAL DIFF FLAG NO
[2024-05-10 10:29] LABS: Basophils Absolute Auto 0.1 X10*3/uL (0.0-0.2); Basophils Percent Auto 1.1 % (0-2); Eosinophils Absolute Auto 0.1 X10*3/uL (0.0-0.4); Eosinophils Percent Auto 1.3 % (0-4); Hematocrit 45.3 % (37.0-47.0); Hemoglobin 14.6 g/dl (12.0-16.0); Imm Gran Abs Auto 0.03 X10*3/uL (0.00-0.03); Imm Gran Pct Auto 0.3 % (0.0-0.4); Lymphocytes Absolute Auto 4.5 X10*3/uL (1.2-4.9); Lymphocytes Percent Auto 52.2 % (20-40); Mean Corpuscular HGB Conc 32.2 g/dl (31.0-35.0); Mean Corpuscular Hemoglobin 30.8 pg (27.0-33.0); Mean Corpuscular Volume 95.6 fL (80.0-98.0); Mean Platelet Volume 9.8 fL (9.4-12.3); Monocytes Absolute Auto 0.4 X10*3/uL (0.1-1.2); Monocytes Percent Auto 5.1 % (2-11); Neutrophils Absolute Auto 3.5 x10*3/uL (2.0-8.3); Platelet Count 333 X10*3/uL (160-400); Red Blood Count 4.74 X10*6/uL (4.20-5.50); Red Cell Distribution Width 12.1 % (11.0-16.0); White Blood Count 8.7 X10*3/uL (4.8-10.8)
[2024-05-10 10:31] LABS: Estimated Average Glucose 117 mg/dL; Hemoglobin A1C 151.0125 umol/L; Hemoglobin A1c % 5.7 % (<6.0)
[2024-05-10 10:49] LABS: Alanine Aminotransferase 17 U/L (0-31); Albumin Level 3.8 g/dL (3.5-5.0); Alkaline Phosphatase 51 U/L (39-117); Anion Gap 10 (12-20); Aspartate Amino Transferase 21 U/L (5-31); Bilirubin Direct 0.2 mg/dL (0.0-0.5); Bilirubin Total 0.6 mg/dL (0.0-1.0); Blood Urea Nitrogen 16 mg/dL (9-16); C Reactive Protein < 0.10 mg/dL (< or = 0.50); Calcium 8.8 mg/dL (8.4-10.2); Carbon Dioxide 28 mmol/L (22-29); Chloride 107 mmol/L (96-108); Cholesterol 160 mg/dL (<200); Estimated Glomerular Filt Rate > 60; Glucose Fasting 87 mg/dL (60-99); HDL Cholesterol 49 mg/dL (>40); LDL Cholesterol Calculated 87 mg/dL (<100); Magnesium 2.1 mg/dL (1.6-2.6); Potassium 3.7 mmol/L (3.3-5.1); Sodium 141 mmol/L (135-145); Triglycerides 124 mg/dL (<150)
[2024-05-10 11:09] LABS: Folate 13.7 ng/mL (> or = 4.0); Vitamin B12 612 pg/mL (200-900)
[2024-05-10 11:18] LABS: Vitamin D 25-OH Total > 154.2 ng/mL (>30)
[2024-05-11 12:08] LABS: LDL Cholesterol Direct 91 mg/dL (<100)
[2024-05-15 11:48] LABS: Vitamin B1 14 nmol/L (8-30)
== END 2024-05-10 07:38 | disposition home or self-care (01) ==
LOC: HO.HMGCLDS 07:37
PROVIDERS: PCP Internal Medicine; Visit Provider Physician Assistant Medical
DX: Z00.00 Encounter for general adult medical examination without abnormal findings (principal); Z13.1 Encounter for screening for diabetes mellitus; Z13.29 Encounter for screening for other suspected endocrine disorder; Z13.220 Encounter for screening for lipoid disorders
CPT/HCPCS: 36415; 80053; 80061; 80076; 82248; 82306; 82607; 82746; 83036; 83721; 83735; 84425; 84443; 85025; 86140

== ENCOUNTER 2024-06-16 12:43 | Outpatient (REF) | payer MEDICARE, MEDICAID, SELFPAY ==
--- NOTE | ~2024-06-16 | MM_ITS ---
EXAMINATION: MM DIAGNOSTIC DIGITAL BREAST TOMOSYNTHESIS, BILATERAL Limited right breast ultrasound. CLINICAL INFORMATION: Right lateral breast/chest burning. Patient states the symptoms have decreased recently. COMPARISON: Mammography: Comparison is made with relevant prior exams. TECHNIQUE: Digital breast mammography with tomosynthesis is performed in both the craniocaudal and mediolateral oblique views along with computer-aided detection (CAD). FINDINGS: There are scattered areas of fibroglandular density (ACR BI-RADS breast composition Category b). There are no significant masses, abnormal calcifications, or other abnormalities. Targeted color Doppler ultrasound scanning in the right breast from 7-11 o'clock in the area of the patient's breast pain demonstrates normal fibronodular breast tissue. There is no sonographic abnormal findings. Results are provided to the patient at time of visit by the technologist. MM/MM tomosynthesis diagnostic BI IMPRESSION: No mammographic or sonographic abnormality to account for the patient's right lateral breast burning sensation. Recommend clinical evaluation and follow-up. Recommend yearly mammographic screening. ASSESSMENT: BI-RADS BI-RADS 1 - Negative RECOMMENDATION: 1 year F/U This patient's information was entered into a reminder system with a target due date for their next mammogram. Electronically signed by: Dorota Valle DO 06/16/2024 01:46 PM EDT
--- OUTSIDE RECORDS SUMMARY | 2024-06-16 14:57 | XMS_ITS | Patient Health Record ---
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 Plan Of Treatment Pending Test Test Name Order Date X ray : Foot, right 3V 05/06/2022 Insurance Providers Payer Name Payer Address Payer Phone Subscriber Number Group Number Insured Name Patient Relationship to Insured Coverage Start Date Coverage End Date Medicare National Govt Svcs Inc [address] [place] [address] [id number] Dahiana Albarado Self - patient is the insured Medical (General) History Medical History History ICD Code covid-19 Arthritis asthma Gall bladder problems High blood pressure Bone implants/screws eyes several retinal tears Surgical History Surgery Date(Month/Year) gall bladder removal 07/1982
== END 2024-06-16 12:44 | disposition home or self-care (01) ==
LOC: HO.MAMMO 12:43
PROVIDERS: PCP Internal Medicine; Visit Provider Physician Assistant Medical
DX: N64.4 Mastodynia (principal)
CPT/HCPCS: 76642; 77062; 77066

== ENCOUNTER → 2024-06-16 13:30 | Outpatient (BNV) | payer MEDICARE, MEDICAID, SELFPAY | PROVIDERS: PCP Internal Medicine; Visit Provider Internal Medicine | DX: N64.4 Mastodynia (principal) | CPT/HCPCS: 76642; 77066; G0279 ==

== ENCOUNTER 2024-11-21 09:10 | Outpatient (AMB) | payer MEDICARE, MEDICAID, SELFPAY ==
[2024-11-21 09:29] VITALS: BP 144/80; PULSE 60; RESP 14; TEMP 36.8; O2SAT 97; BMI 27.8
--- NOTE | 2024-11-21 09:29 | MHC.PC.OV ---
Vital Signs 11/21/24 09:29 Height 5 ft 6 in Weight 172 lb BMI 27.8 BP 144/80 H Respiration 14 Pulse 60 Pulse Source Pulse Oximeter Temp 98.2 F Temp Source Temporal Artery Scan Pulse Oximetry (%) 97 Oxygen Delivery Method Room Air Intake Visit Reasons: Establish Care/ Dr. Melchor Full Fashioned Garment Knitter Required: No Accompanied by: Self / Same As Patient Allergies codeine Allergy (Severe, Verified 11/21/24 09:30) chest pain Penicillins Allergy (Severe, Verified 11/21/24 09:30) hives Tobacco use date assessed: 11/21/24 Dental Screening Dental Screen Date: 05/03/24 [facility] Medical History Burning chest pain Overweight with body mass index (BMI) of 28 to 28.9 in adult Breast cancer screening Encounter for colorectal cancer screening using Cologuard test (~08/05/22) Varicella zoster Headache, migraine Other disturbances of skin sensation Hypertension Otalgia, bilateral Asthma Pneumonia Asthmatic bronchitis Surgical History History of dilatation and curettage History of cholecystectomy Family History Father Heart disease Mother Bladder cancer Social History Housing: House Alcohol intake: never Patient Tobacco Use Status: Former Tobacco user service: No Current occupational status: employed Cognitive needs: No Hearing needs: No Vision needs: Yes Questionnaire PHQ-9 Over the last 2 weeks, how often have you been bothered by any of the following problems? 1. Little interest or pleasure in doing things: not at all 2. Feeling down, depressed, or hopeless: not at all 3. Trouble falling or staying asleep, or sleeping too much: not at all 4. Feeling tired or having little energy: not at all 5. Poor appetite or overeating: not at all 6. Feeling bad about yourself - or that you are a failure or have let yourself or your family down: not at all 7. Trouble concentrating on things, such as reading the newspaper or watching television: not at all 8. Moving or speaking so slowly that other people could have noticed. Or the opposite - being so fidgety or restless that you have been moving around a lot more than usual: not at all 9. Thoughts that you would be better off or of hurting yourself in some way: not at all Total score: 0 Depression Screening Interpretation: Negative Depression Screening Done: Yes 67639 - PHQ-9 Billing: Yes Source: Developed by Drs. Santo Woods, Neha Prasad, Contreras Vail and colleagues, with an educational marco a from [employer]. Thrive Questionnaire Date Thrive assessed: 05/03/24 I am a: Patient What is your living situation today?: I have a steady place to live Within the past 12 months, did the food you bought not last and you didn't have the money to get more?: Never true Within the past 12 months, did you worry whether your food would run out before you got money to buy more?: Never true Do you have trouble paying for medicines?: No Do you have trouble getting transportation to medical appointments?: No Do you have trouble paying your heating and electricity bill?: No Do you have trouble taking care of your child, family member or friend?: No Do you have trouble with day-to-day activities such as bathing, preparing meals, shopping, managing finances, etc.?: No Are you currently unemployed and looking for a job?: No Are you interested in more education?: No THRIVE Score: 0 AUDIT C Alcohol Use Questionnaire (AUDIT-C) 1. How often do you have a drink containing alcohol?: Never 3. How often do you have six or more drinks on one occasion?: Never Total Score: 0 Score Reviewed/Action Taken: No CHOCO-7 AMB Questionnaire CHOCO-7 Date CHOCO - 7 assessed: 05/03/24 Feeling nervous, anxious, or on edge: 0 = Not at all Not being able to stop or control worryin = Not at all Worrying too much about different things: 0 = Not at all Trouble relaxin = Not at all Being so restless that it is hard to sit still: 0 = Not at all Becoming easily annoyed or irritable: 0 = Not at all Feeling afraid as if something awful might happen: 0 = Not at all Total CHOCO-7 score (0-4 normal; 5-9 mild; 10-14 moderate; 15-21 severe): 0 Source: Developed by Drs. Santo Woods, Neha Prasad, Contreras Vail and colleagues, with an educational marco a from [employer]. CHOCO-7 Assessment Billing CHOCO-7 Assessment Tool: CHOCO-7 Assessment 01397 Physical exam (Primary Care) Vital Signs: Last Vital Signs Temp 98.2 F 11/21/24 09:29 Pulse 60 11/21/24 09:29 Resp 14 11/21/24 09:29 BP 144/80 H 11/21/24 09:29 Pulse Ox 97 11/21/24 09:29 Oxygen Delivery Method Room Air 11/21/24 09:29 BMI result Body Mass Index 27.8 Tobacco/Smoking Status: Tobacco use Status Tobacco use date assessed 11/21/24 11/21/24 09:40 Patient Tobacco Use Status Former Tobacco user 11/21/24 09:40 PHQ-9: PHQ-9 Score PHQ-9: Total score 0 11/21/24 09:43 Depression Screening Interpretation: Negative Thrive Assessment: Date of Thrive Assessment Date Thrive assessed 05/03/24 11/21/24 09:40 Office Procedures Flu Questionnaire Does the patient have a severe egg allergy?: No Does the patient have severe life threatening allergies?: No Does the patient have a fever or illness today?: No Has the patient ever had Guillain-Nemaha Syndrome?: No Has the patient ever had any past reaction to a flu shot?: No Immunizations Fluarix [id number] (PF) 45 mcg (15 mcg x 3)/0.5 mL IM syringe Performing Provider: Adam Matute MD [facility] Documented (not given) by: EFRAÍN Mack on 11/21/24 09:43 Reason Not Given: Patient Refused Coding Level of Care Code Est Pt Level 4 (30096) Complex EM visit Add On G2211 Diagnoses Hypertension I10 Additional Codes CHOCO-7 Assessment Billing - CHOCO-7 Assessment Tool: CHOCO-7 Assessment 89171 ([id number]) PHQ-9 - 99364 - PHQ-9 Billing: Yes ([id number]) Assessment & Plan Assessment & Plan (1) Hypertension: Code(s): I10 - Essential (primary) hypertension Category: Medical Plan: History of Present Illness - The patient is a 69-year-old female presenting with a wellness check-up and discussion of preventative care measures. - She had knee problems four years ago, which initially prevented her from exercising, but she has resumed activity and walked three miles yesterday. - She has experienced shingles three times, with episodes in the groin and back, characterized by pain and numbness, and is considering the shingles vaccine. - A ganglion cyst was noted on her wrist, which has decreased in size. 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 - She has a history of retinal tears and regularly visits her eye doctor. - The patient practices intermittent fasting and maintains a diet rich in vegetables and protein, with occasional indulgences. Social History - Employment: The patient works as a massage therapist. - Exercise: She has resumed exercising, walking three miles yesterday. - Nutrition: Practices intermittent fasting and consumes a diet rich in vegetables and protein. Review of Systems - Musculoskeletal: Reports knee problems four years ago, now resolved with resumed exercise. - Neurological: Reports episodes of shingles with pain and numbness. - Ophthalmologic: Reports history of retinal tears. - Dermatologic: Reports a ganglion cyst on the wrist, now decreased in size. Physical Exam General: Cooperative and healthy appearing Nutritional Appearance: Well nourished Orientation/consciousness: Patient oriented x3 Limitations: No limitations Head: Normal to inspection General: Appearance normal, both eyes and all related structures Neck: Normal visual inspection Chest: Normal palpation of entire chest wall Respiratory: N ormal respiratory effort Neurology: Patient oriented x3, reports numbness associated with shingles. Results - Labs: Blood work done in April was normal. - Screening Tests: Mammogram and colon cancer screening with stool test are up to date. - Bone Density: Screening done two years ago was normal. Plan - Discussed the shingles vaccine, which consists of two doses with coverage after the second dose. - Recommended the patient to get the shingles vaccine at the pharmacy. - Plan to conduct fasting blood work to check thyroid and anemia. Discussion Notes I discussed with the patient the benefits of the shingles vaccine, explaining that it consists of two doses with coverage after the second dose. We also talked about the importance of getting the vaccine at the pharmacy. Additionally, I recommended conducting fasting blood work to check thyroid function and anemia. Patient Instructions - Get the shingles vaccine at the pharmacy. - Schedule fasting blood work to check thyroid and anemia. Orders: Orders Influenza [id number] Immunization Today Z23 - Encounter for immunization Medications: New varicella-zoster gE vac,2 of 2 (Shingrix gE Antigen Component) 0.5 mL IM ONCE 1 ea 0RF ondansetron 4 mg PO Q8H 7 tabs 0RF
--- OUTSIDE RECORDS SUMMARY | 2024-11-21 09:50 | XMS_ITS | Clinical Summary ---
Author Organization [facility] Address [address] [place] [phone] Phone Care Team Providers Care Manager Revenue Name Role Phone Adam Matute MD Primary Care Provid er Allergies Active Allergy Reactions Criticality Noted Date Comments Azithromycin Hives 05/24/2024 Clarithromycin Hives 05/24/2024 Codeine Angina High 07/20/2020 Diclofenac 05/24/2024 Other Reaction(s): diarrhea,upset stomach Erythromycin Hives 05/24/2024 Naproxen Sodium 05/24/2024 Other Reaction(s): ill feeling Penicillins Hives Medium 07/20/2020 Medications albuterol 90 mcg/actuation inhaler INHALE 1 PUFF 4 TIMES A DAY NEEDED FOR SHORTNESS OF BREATH OR WHEEZING Active fluticasone propionate 220 mcg/actuation inhaler INHALE 2 PUFFS BY MOUTH TWICE DAILY FOR ASTHMA FOR 30 DAYS. USE WITH SPACER Active losartan (COZAAR) 50 MG tablet Take 50 mg by mouth 2 (two) times a day. Active propranoloL (INDERAL) 10 MG immediate release tablet Take 10 mg by mouth. Active Active Problems Problem Noted Date Diagnosed Date Neuritis of right foot 05/24/2024 Hemangioma of skin and subcutaneous tissue 03/04 Asthma 06/05/2022 Neuroma of right lower extremity 07/24/2020 Flat foot 07/24/2020 Gastrocnemius equinus of left lower extremity Gastrocnemius equinus of right lower extremity 0 07/24/2020 Immunizations Immunization Administration Dates Next Due Hepatitis B Adult 11/16/2019 Tdap 12/23/2019 Family History Medical History Relation Comments Heart disease Father Bladder Cancer Mother Relation Status Comments Father Mother Social History Tobacco Use Types Packs/Day Years Used Date Smoking Tobacco: Never Smokeless Tobacco: Never Alcohol Use Standard Drinks/Week Comments Not Currently 0 (1 standard drink = 0.6 oz pur e alcohol) Education Answer Date Recorded Are you interested in more education? Not on tati e 06/21/2022 Are you concerned about learning? Not on file 06/21/2022 No 06/21/2022 No 06/21/2022 Digital Access Answer Date Recorded No 07/19/2022 No 07/19/2022 Reliable internet access at home? Not on file 07/19/2022 Device with a working camera? 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 on file Not on file Not on tati e Last Filed Vital Signs Vital Sign Reading Time Taken Comments Blood Pressure 130/70 05/24/2024 8:51 AM EDT Pulse - - Temperature - - Respiratory Rate - - Oxygen Saturation - - Inhaled Oxygen Concentration - - Weight 80.7 kg (178 lb) 05/24/2024 8:51 AM EDT Height 167.6 cm (5' 6 ) 05/24/2024 8:51 AM EDT Body Mass Index 28.73 05/24/2024 8:51 AM EDT Plan of Treatment Health Maintenance Due Date Last Done Comments CREATININE LEVEL 1956 LIPID PANEL 1956 POTASSIUM LEVEL 1956 DEPRESSION SCREENING 1968 HEPATITIS C SCREENING 1974 PNEUMOCOCCAL VACCINES (50+ years) (1 of 2 - PCV) 06/11/1975 SCREENING FOR DIABETES 06/11/1991 MAMMOGRAM 1996 COLONOSCOPY 2001 FIT TEST 2001 FOBT 2001 SIGMOIDOSCOPY 2001 VIRTUAL COLONOSCOPY 2001 ZOSTER VACCINES (1 of 2) 2006 RSV VACCINE (1 - Risk 60-74 years 1-dose series) 2016 OSTEOPOROSIS SCREENING INITI AL (ONE-TIME) 2021 INFLUENZA VACCINE (#1) 2024 COVID-19 VACCINE (4 - 2024-2 6 season) 2024 12/28/2020, 04/06/2020, 03/16/2020 COLOGUARD 08/21/2025 08/21/2022 COLORECTAL CANCER SCREENING 08/21/2025 Adult Td,Tdap Booster 12/22/2029 12/23/2019 SMOKING STATUS SCREENING (On ce After 26 Yrs) Completed 05/24/2024 HEPATITIS A VACCINES Aged Out No long er eligible based on patient's age to complete this topic HIB VACCINES Aged Out No longer eligi ble based on patient's age to complete this topic MENINGOCOCCAL VACCINES (ACWY) Aged Out No longer eligible based on patient's age to complete this topic MENINGOCOCCAL VACCINES (B) Aged Out N o longer eligible based on patient's age to complete this topic Medical Devices Not on file Insurance [facility] MEDICARE PART A & B [facility] MEDICARE PART A & B [facility] MEDICARE [facility] A & B [facility] MEDICARE [facility] A & B [facility] MEDICARE PART A & B [facility] MEDICARE PART A & B Care Teams Manager Revenue Relationship Specialty Start Date End Date Adam Matute MD [address] [phone] PCP - General Internal Medicine 05/09/24 Additional Source Comments The information contained in this document represents components of the legal health record. It is not the complete legal health record.[facility]
--- OUTSIDE RECORDS SUMMARY | 2024-11-21 09:50 | XMS_ITS | Encounter Summary ---
Author Organization [facility] Address [address] [place] [address] Care Team Providers Care Transition Specialist Name Role Phone Unavailable Primary Care Provider Unavailabl e Prior Encounters Date Type Department Care Team Description 03/14/2019 Converted CPS Chart Documents [facility] [address] [place] [phone] <No scans attached> 03/14/2019 Converted CPS Chart Documents [facility] [address], [facility] [address] [place] [phone] <No scans attached> 03/14/2019 Converted 13x Documents [facility] [address] [place] [phone] <No scans attached> 03/14/2019 Converted 13x Documents [facility] [address], [place] [address] [place] [phone] <No scans attached> Plan of Treatment Not [...] 19 ENDODONTIC THERAPY, MOLAR TOOTH (EXCLUDING FINAL YARSANI) Routine 01/22/2016 1:00 AM MST 29 ENDODONTIC THERAPY, PREMOLAR TOOTH (EXCLUDING FINAL YARSANI) Routine 01/22/2016 1:00 AM MST 10 ENDODONTIC THERAPY, ANTERIOR TOOTH (EXCLUDING FINAL YARSANI) Routine 01/22/2016 1:00 AM MST 6 ENDODONTIC THERAPY, ANTERIOR TOOTH (EXCLUDING FINAL YARSANI) Routine 01/22/2016 1:00 AM MST 11 CROWN PFM ANT Routine 01/22/2016 1:00 AM MST 10 CROWN PFM ANT Routine 01/22/2016 1:00 AM MST 9 CROWN PFM ANT Routine 01/22/2016 1:00 AM MST 8 CROWN PFM ANT Routine 01/22/2016 1:00 AM MST ADJUNCTIVE PRE-DIAGNOSTIC TEST THAT AIDS IN DETECTION OF MUCOSAL ABNORMALITIES Routine 01/22/2016 1:00 AM [facility] COMPREHENSIVE ORAL EVALUATION - NEW OR ESTABLISHED PATIENT Routine 01/22/2016 1:00 AM [facility] PANORAMIC RADIOGRAPHIC IMAGE Routine 01/22/2016 1:00 AM [facility] INTRAORAL - COMPREHENSIVE SERIES OF RADIOGRAPHIC [...] 6 ENDODONTIC THERAPY, ANTERIOR TOOTH (EXCLUDING FINAL YARSANI) Routine 01/13/2014 1:00 AM MST CHLORHEXIDINE Routine [...] 29 ENDODONTIC THERAPY, PREMOLAR TOOTH (EXCLUDING FINAL YARSANI) Routine 09/22/2012 1:00 AM MDT ADDITIONAL X-RAY Routine 09/22/2012 1:00 AM MDT 6 LIMITED ORAL EVALUATION - PROBLEM FOCUSED Routine 09/22/2012 1:00 AM MDT SINGLE X-RAY Routine 09/22/2012 1:00 AM MDT Visit Diagnoses Not on file
--- OUTSIDE RECORDS SUMMARY | 2024-11-21 09:50 | XMS_ITS | Clinical Summary ---
Author Organization [facility] Address [address] [place] [address] Care Team Providers Care Fire Services Plumber Name Role Phone Unavailable Primary Care Provider [...]
--- OUTSIDE RECORDS SUMMARY | 2024-11-21 09:50 | XMS_ITS | Encounter Summary ---
Author Organization [facility] Address [address] [place] [address] Phone Care Team Providers Care Plant Protection Superintendent Name Role Phone Adam Matute MD Primary Care Provid er Encounter Details Date Type Department Care Team (Late st Contact Info) Description 05/09/2024 Transcribe Orders Virtual Department [address] [place] [address] Adam Matute MD [address] [place] [address] [place] [id number] Breast screening (Primary Dx) Social History Tobacco Use Types Packs/Day Years Used Date Smoking Tobacco: Former Smokeless Tobacco: Never Alcohol Use Standard Drinks/Week [...] a working camera? Not on file Comments Unknown Sex and Gender Information Value Date Recorded Sex Assigned at Female 07/17/2020 12:16 PM EDT Legal Sex Female 1:39 PM EDT Gender Identity Female 07/17/2020 12:16 PM EDT Sexual Orientation Not on file documented as of this encounter Plan of Treatment Not on file documented as of this encounter Visit Diagnoses Diagnosis Breast screening- Primary Breast screening, unspecified documented in this encounter Care Teams Plant Protection Superintendent Relationship Specialty Start Date End Date Adam Matute MD [address] [place] [phone] PCP - General Internal Medicine 05/09/24 documented as of this encounter Additional Source Comments The information contained in this document represents components of the legal health record. It is not the complete legal health record.[facility]
== END 2024-11-21 10:10 | disposition home or self-care (01) ==
LOC: HO.HMCSH 09:10
PROVIDERS: PCP Internal Medicine; Visit Provider Internal Medicine
DX: Z23 Encounter for immunization (principal); I10 Essential (primary) hypertension

== ENCOUNTER → 2024-11-21 09:10 | Outpatient (BNVA) | payer MEDICARE, MEDICAID, SELFPAY | PROVIDERS: PCP Internal Medicine; Visit Provider Internal Medicine | DX: I10 Essential (primary) hypertension (principal); M19.042 Primary osteoarthritis, left hand; M19.041 Primary osteoarthritis, right hand; Z28.21 Immunization not carried out because of patient refusal | CPT/HCPCS: 90471; 96127; 99212 ==